=== PATIENT | female | born 1995 | race Caucasian/White ===

== ENCOUNTER 2020-06-21 18:05 | Emergency (ER) | payer OTHER ==
[2020-06-21] MEDS ORDERED: methylPREDNISolone Acetate 40 mg/ml Vial ONE (18:28)
== END 2020-06-21 18:43 | disposition home or self-care (01) ==
LOC: NAV ERS 18:05
DX: L23.7 Allergic contact dermatitis due to plants, except food (principal)
CPT/HCPCS: 96372; 99282; J2920